=== PATIENT | female | born 1985 | race Hispanic/Latino ===

== ENCOUNTER 2018-10-26 16:31 | Emergency (ER) | payer OTHER ==
[2018-10-26 17:01] VITALS: BP 134/76
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
== END 2018-10-26 18:56 | disposition home or self-care (01) ==
LOC: ED 16:31
DX: S46.912A Strain of unspecified muscle, fascia and tendon at shoulder and upper arm level, left arm, initial encounter (principal); E11.9 Type 2 diabetes mellitus without complications; V49.49XA Driver injured in collision with other motor vehicles in traffic accident, initial encounter; Y93.89 Activity, other specified; Y92.89 Other specified places as the place of occurrence of the external cause; Y99.8 Other external cause status
CPT/HCPCS: 99283

== ENCOUNTER 2020-11-09 11:12 | Outpatient (CLI) | payer BC ==
[2020-11-09 11:53] LABS: Basophils # (Auto) 0.2 K/mm3 (0.0-0.1); Basophils % (Auto) 2.6 % (0.0-1.8); Eosinophils # (Auto) 0.2 K/mm3 (0.0-0.4); Eosinophils % (Auto) 2.1 % (0.0-4.3); Hematocrit 37.6 % (30.3-42.9); Lymphocytes # (Auto) 1.6 K/mm3 (1.2-5.4); Lymphocytes % (Auto) 20.3 % (13.4-35.0); Mean Corpuscular HGB Conc 35 % (30-34); Mean Corpuscular Volume 91 fl (79-97); Monocytes # (Auto) 0.5 K/mm3 (0.0-0.8); Monocytes % (Auto) 6.9 % (0.0-7.3); Platelet Count 250 K/mm3 (140-440); Red Blood Count 4.12 M/mm3 (3.65-5.03)
[2020-11-09 12:08] LABS: Alanine Aminotransferase 15 units/L (7-56); Albumin 3.6 g/dL (3.9-5); Blood Urea Nitrogen 8 mg/dL (7-17); Hemolysis Index 11
[2020-11-09 12:09] LABS: BUN/Creatinine Ratio 16
[2020-11-09 12:58] LABS: Hepatitis C Virus Antibody Non-Reactive (NonReactive)
[2020-11-09 16:23] LABS: Creatinine,Urine 40.5 mg/dL (0.1-20.0)
[2020-11-13 08:28] LABS: HIV-1 Antibody Differentiation SEE SCANNED RESULT; HIV-2 Antibody Differentiation SEE SCANNED RESULT
== END 2020-11-09 11:13 | disposition home or self-care (01) ==
LOC: LAB 11:12
PROVIDERS: ATTEND Advanced Practice Midwife
DX: O09.891 Supervision of other high risk pregnancies, first trimester (principal); Z3A.10 10 weeks gestation of pregnancy; E10.3593 Type 1 diabetes mellitus with proliferative diabetic retinopathy without macular edema, bilateral
CPT/HCPCS: 36415; 80053; 82565; 82570; 82575; 83615; 84156; 85025; 85660; 86592; 86689; 86706; 86762; 86803; 86850; 86900; 86901; 87086

== ENCOUNTER 2021-02-13 19:14 | Outpatient (CLI) | payer BC | END 2021-02-13 20:37 | disposition home or self-care (01) | LOC: TRG 19:14 → APU 19:31 → TRG 20:37 | PROVIDERS: ATTEND Obstetrics & Gynecology | DX: O36.8120 Decreased fetal movements, second trimester, not applicable or unspecified (principal); Z3A.24 24 weeks gestation of pregnancy | CPT/HCPCS: 59025 ==

== ENCOUNTER 2021-04-01 07:51 | Outpatient (CLI) | payer BC ==
--- NOTE | 2021-04-01 09:19 | Ultrasound Report ---
ULTRASOUND BREAST RIGHT LIMITED, 04/01/2021 CLINICAL INFORMATION / INDICATION: UNSPECIFIED LUMP IN RIGHT BREAST. 31 week TECHNIQUE: Targeted ultrasound evaluation was performed of the area of interest. COMPARISON: None. FINDINGS: Dense fibrocystic type tissue is seen in the area of palpable concern but no discrete lesio ns are noted. IMPRESSION: No sonographic evidence of malignancy. Follow up recommendation: Clinical follow-up is suggested. After , if this is a continued co ncern, limited mammography could be performed. BI-RADS Category 2: Benign. A normal or "negative" report should not preclude biopsy or follow-up of a clinically suspicious find ing. Signer Name: Isacc Olivia MD Signed: 04/01/2021 9:14 AM Workstation Name: [id number]
== END 2021-04-01 07:52 | disposition home or self-care (01) ==
LOC: US 07:51
PROVIDERS: ATTEND Obstetrics & Gynecology
DX: N63.11 Unspecified lump in the right breast, upper outer quadrant (principal)

== ENCOUNTER 2021-04-07 12:32 | Outpatient (CLI) | payer BC ==
[2021-04-07 12:37] VITALS: BP 129/59
[2021-04-07] MEDS ORDERED: LACTATED RINGERS 500 ML IV ONE (13:50)
[2021-04-07] MEDS ORDERED: TERBUTALINE 1 MG/1 ML INJ ONE (13:55)
[2021-04-07] MEDS: TERBUTALINE 1 MG/1 ML INJ SUB-Q NR ×3 (14:13→15:36)
[2021-04-07 15:35] LABS: Bacteria,Urine 4+ /HPF (Negative); Bilirubin,Urine NEG (Negative); Blood,Urine NEG (Negative); Color,Urine Straw (Yellow); Protein,Urine <15 mg/dL mg/dL (Negative); Urobilinogen,Urine < 2.0 mg/dL (<2.0)
[2021-04-07] MEDS ORDERED: LIDOCAINE-MPF (1%) 10 MG/1 ML VIAL 5 ML INFILTRATI NR (16:03)
[2021-04-07] MEDS ORDERED: LACTATED RINGERS 1,000 ML IV ONE (16:07)
[2021-04-07] MEDS ORDERED: cefTRIAXone/NS 1 GM/50 ML 1 GM/50 ML BAG IV ONE ×2 (16:30→18:00)
== END 2021-04-07 17:14 | disposition home or self-care (01) ==
LOC: TRG 12:32 → APU 13:56 → TRG 16:10 → APU 16:10 → TRG 17:14
PROVIDERS: ATTEND Obstetrics & Gynecology
DX: O62.9 Abnormality of forces of labor, unspecified (principal); Z3A.31 31 weeks gestation of pregnancy
CPT/HCPCS: 59025; 81001; 87086; 96360; 96361; 96372; J3105; J7120; 96367

== ENCOUNTER 2021-05-06 11:53 | Outpatient (CLI) | payer BC | END 2021-05-06 11:54 | disposition home or self-care (01) | LOC: LAB 11:53 | PROVIDERS: ATTEND Obstetrics & Gynecology | DX: O09.893 Supervision of other high risk pregnancies, third trimester (principal); Z3A.35 35 weeks gestation of pregnancy | CPT/HCPCS: 36415; 86592; 86689 ==

== ENCOUNTER 2021-05-14 10:29 | Inpatient (IN) | payer BC ==
[2021-05-14] MEDS ORDERED: FAMOTIDINE 20 MG/2 ML INJ IV NR (11:00)
[2021-05-14] MEDS ORDERED: ceFAZolin/Water 2 GM/20 ML 2 GM/20 ML SYRINGE IV NR (11:00)
[2021-05-14] MEDS ORDERED: LACTATED RINGERS 1,000 ML IV SCH (11:00)
[2021-05-14] MEDS ORDERED: OXYTOCIN DRIP 30 UNITS/500 ML BAG IV SCH ×2 (11:00→17:34)
[2021-05-14] MEDS ORDERED: METOCLOPRAMIDE 10 MG/2 ML INJ IV NR (11:00)
[2021-05-14] MEDS ORDERED: BICITRA ORAL LIQD 30ML PO NR (11:00)
--- NOTE | 2021-05-14 12:21 | History and Physical Report ---
History of Present Illness Date of examination: 05/14/21 Date of admission: 05/14/21 10:29 Chief complaint: contractions History of present illness: Patient seen in office today today for routine visit c/o contractions that have increased in frequency since yesterday. States while working she had the contractions with increased pelvic pressure but that with rest the contractions spaced on yesterday. Today the contractions have returned. She is sharon on NST q 3 to 5 minutes. Pt has h/o delvery at 37 weeks previously. complicated by IDDM. She also was 3-50/-2 in the office with breech presentation. Pt sent to labor and delivery for repeat c/s. All risk, benefits and alternatives were d/w pt. Provider subscription clerk aware of pt and labor status. EDC Calculations LMP: 06/04/2021 EDC Confirmation: 06/04/2021 Gestational Age: 36 6/7 weeks Past History : 2 Term Births: 1 Premature Births: 0 Living Children: 1 Para: 1 Mult. Births: 0 Prev : 1 Prev. attempt? 0 Aborta: 0 Elect. Ab: 0 Spont. Ab: 0 Ectopics: 0 # 1 Delivery date: 2014 Weeks Gestation: term labor: no Delivery type: Anesthesia type: epidural Delivery location: [facility] Infant Sex: Female weight: 8-6 Name: Deb Comments: failure to descend; severe PPD w/o SI/HI Risk Factors: Smoked Tobacco Use: Former smoker Cigarettes: Yes Smokeless Tobacco Use: Never Counseled to quit/cut down: yes Passive smoke exposure: no Drug use: no HIV high-risk behavior: no Alcohol use: no Exercise: no Seatbelt use: 100 % Dietary Counseling: pn yes Past Medical History: Reviewed history from 06/05/2020 and no changes required: Diabetes Past Surgical History: Reviewed history from 06/05/2020 and no changes required: - 2014 Past Medical History Anesthesia Complications: negative Diabetes: yes Surgery (Non-urogynecology physician): - 2014 Abnormal PAP: negative SARAH Exposure: negative Infertility: negative Uterine Anomaly: negative Uterine Surgery (not C/S): negative Social Hx: Patient is Smoking History: Patient is a former smoker. Infection History Hx of STD: none HIV Risk Eval: no Hepatitis B Risk Eval: low risk Genetic History Congenital Heart Defect: Mom: no Dad: no Veronika Disease: Mom: no Dad: no Thalassemia Mom: no Dad: no Neural Tube Defect Mom: no Dad: no Down's Syndrome Mom: no Dad: no Mathew-Sachs Mom: no Dad: no Sickle Cell Disease/Trait Mom: no Dad: no Hemophilia Mom: no Dad: no Muscular Dystrophy Mom: no Dad: no Cystic Fibrosis Mom: no Dad: no Gwendolyn Chorea Mom: no Dad: no Mental Retardation Mom: no Dad: no Fragile X Mom: no Dad: no Other Genetic/Chromosomal Disorder Mom: no Dad: no Child w/other defect Mom: no Dad: no Enviromental Exposures Xray Exposure: no Medication, drug, or alcohol use since LMP: no Chemical/Other Exposure: no Exposure to Cat Liter: no Hx of Parvovirus (Fifth Disease): no Occupational Exposure to Children: none Active Medications (reviewed today): MACROBID () prn VITAMIN D () FOLIC ACID () HUMALOG SOLUTION CARTRIDGE (INSULIN LISPRO SOCT) PLUS 27-1 MG ORAL TABLET ( VIT-FE FUMARATE-FA) 1 po Current Allergies (reviewed today): No known allergies Laboratory Results Past History Past Medical History: diabetes Past Surgical History: section Family/Genetic History: other (see hpi) Social history: other (see hpi) - Obstetrical History : 2 Medications and Allergies Allergies Allergy/AdvReac Type Severity Reaction Status Date / Time No Known Allergies Allergy Unverified 10/26/18 16:37 Home Medications Medication Instructions Recorded Confirmed Last Taken Type Cyclobenzaprine [Flexeril] 10 mg PO QHS PRN #20 tablet 10/26/18 Unknown Rx Ibuprofen [Motrin] 800 mg PO Q8HR #30 tablet 10/26/18 Unknown Rx Active Meds: Active Medications Citric Acid/Sodium Citrate (Bicitra Oral Liqd 30ml) 30 ml PO ONCE@1100 NR Stop: 05/14/21 20:00 Famotidine (Famotidine 20 Mg/2 Ml Inj) 20 mg IV ONCE@1100 NR Stop: 05/14/21 20:00 Lactated Ringer's (Lactated Ringers) 1,000 mls @ 2,250 mls/hr IV PREOP WARREN Stop: 05/15/21 11:27 Oxytocin/Sodium Chloride (Pitocin/Ns 30 Unit/500ml) 30 units in 500 mls @ 0 mls/hr IV TITR WARREN; Protocol Cefazolin Sodium (Ancef/Sterile Water 2 Gm/20 Ml) 2 gm in 20 mls @ 80 mls/hr IV PREOP NR; Protocol Stop: 05/14/21 20:00 Metoclopramide HCl (Metoclopramide 10 Mg/2 Ml Inj) 10 mg IV ONCE@1100 NR Stop: 05/14/21 20:00 - Vital Signs Vital signs: Vital Signs Pulse Pulse Ox 101 H 97 05/14/21 11:28 05/14/21 11:28 Temp Pulse Resp BP Pulse Ox 84 98 05/14/21 12:13 05/14/21 12:13 - Physical Exam Cardiovascular: Normal S1, Normal S2 Lungs: Positive: Clear to auscultation, Normal air movement Abdomen: Positive: normal appearance, soft. Negative: distention, tenderness, guarding Genitourinary (Female): Positive: normal external genitalia, normal perenium - Obstetrical FHR: category 1 Cervical Dilatation: 3.5 Cervical Effacement Percentage: 50 Uterine Contraction Duration: -2 Uterine Contraction Pattern: Regular Uterine Tone Measurement Phase: Resting Uterine Contraction Intensity: Mild Results All other labs normal. Assessment and Plan - Patient Problems (1) 36 to 37 weeks gestation of Current Visit: Yes Status: Acute (2) labor Current Visit: Yes Status: Acute Qualifiers: labor trimester: third trimester Fetus number: single or unspecified fetus Plan to address problem: -prepare for repeat (3) Diabetes mellitus, insulin dependent (IDDM), controlled Current Visit: Yes Status: Acute Plan to address problem: -cont insulin post -well controlled during (4) Previous delivery affecting Current Visit: Yes Status: Acute Plan to address problem: -currently breech with labor -prepare for (5) Breech presentation Current Visit: Yes Status: Acute Qualifiers: Fetus number: single or unspecified fetus Qualified Code(s): O32.1XX0 - Maternal care for breech presentation, not applicable or unspecified Plan to address problem: -prepare for c/s delivery
[2021-05-14 12:43] LABS: Basophils % (Auto) 0.3 % (0.0-1.8); Eosinophils # (Auto) 0.1 K/mm3 (0.0-0.4); Hemoglobin 13.5 gm/dl (10.1-14.3); Lymphocytes # (Auto) 1.9 K/mm3 (1.2-5.4); Lymphocytes % (Auto) 18.9 % (13.4-35.0); Mean Corpuscular HGB Conc 34 % (30-34); Mean Corpuscular Volume 91 fl (79-97); Monocytes # (Auto) 0.9 K/mm3 (0.0-0.8); Platelet Count 261 K/mm3 (140-440); Red Cell Distribution Width 13.2 % (13.2-15.2)
[2021-05-14] MEDS ORDERED: dexAMETHasone 20 MG/5 ML VIAL ONE (13:13)
[2021-05-14] MEDS ORDERED: ONDANSETRON 4 MG/2 ML INJ ONE (13:13)
[2021-05-14] MEDS ORDERED: KETOROLAC 30 MG/1 ML INJ ONE (13:13)
[2021-05-14] MEDS ORDERED: BUPIVACAINE/PF (0.5%) 5 MG/1 ML 30 ML VIAL INFILTRATI ONE (13:13)
[2021-05-14] MEDS ORDERED: CARBOPROST TROMETHAMINE 250 MCG/1 ML INJ IM ONE (13:23)
[2021-05-14] MEDS ORDERED: miSOPROStol 200 MCG TAB ONE (13:23)
[2021-05-14] MEDS ORDERED: SODIUM CHLORIDE 0.9% IRR 1,500 ML BOTTLE IR ONE (14:10)
[2021-05-14] MEDS ORDERED: WATER FOR IRRIG STERILE 1,500 ML BOTTLE IR ONE (14:10)
--- NOTE | 2021-05-14 14:15 | Anesthesia Day of Surgery ---
Anesthesia Day of Surgery - Day of Surgery Patient Examined: Yes Patient H&P Reviewed: Yes Patient is NPO: No (given reglan, pepcid) Beta Blockers: No Cardiac Clearance: No Pulmonary Clearance: No Aniket's Test: N/A (ate light breakfast @ 0700)
--- NOTE | 2021-05-14 14:16 | Anesthesia Consultation ---
Anesthesia Consult and Med Hx Date of service: 05/14/21 - Airway Anesthetic Teeth Evaluation: Good, Chipped ROM Head & Neck: Adequate Mental/Hyoid Distance: Adequate Mallampati Class: Class II Intubation Access Assessment: Probably Good - Pulmonary Exam CTA: Yes - Cardiac Exam Cardiac Exam: RRR - Pre-Operative Health Status ASA Pre-Surgery Classification: ASA2, Emergency Proposed Anesthetic Plan: Spinal Nerve Block: TAP - Pulmonary Hx Smoking: No Hx Asthma: No COPD: No Hx Pneumonia: No Hx Sleep Apnea: No - Cardiovascular System Hx Hypertension: No Hx Heart Attack/AMI: No Hx Angina: No - Gastrointestinal Hx Gastroesophageal Reflux Disease: No - Endocrine Hx Renal Disease: No Hx End Stage Renal Disease: No Hx Liver Disease: No Hx Insulin Dependent Diabetes: Yes (Type 1, well controlled on pump) Hx Non-Insulin Dependent Diabetes: No - Other Systems Hx Alcohol Use: No - Additional Comments Anesthesia Medical History Comments: previous c/s
--- NOTE | 2021-05-14 14:17 | Progress Note ---
Spinal Anesthesia Block - Spinal Anesthesia Block Start Time: 13:50 Stop Time: 13:59 Performed by:: JUAN RAMON GARCÍA (Melanie MUHAMMAD) Procedure: Spinal anesthesia block is being performed for [C/S]. H&P, labs have been reviewed. Patient's questions and concerns have been answered. Informed consent has been performed. Timeout has was performed. Patient in sitting position on side of bed. Sterile prep and drape was performed. 3 mL 1% lidoc tonya skin wheal at L [3]-L [4]. Needle introducer advanced. 25-gauge spinal needle advanced, [+] CSF [-] blood. [Marcaine 10mg and Precedex 5mcg] Spinal dose was given. All needles removed. Patient tolerated procedure well.
[2021-05-14] MEDS ORDERED: PHENYLEPHRINE/NS 1,000 MCG/10 ML SYRINGE (OR USE) IV ONE (14:19)
[2021-05-14] MEDS ORDERED: NALOXONE 0.4 MG/1 ML INJ IV PRN ×2 (14:30→17:34)
[2021-05-14] MEDS ORDERED: diphenhydrAMINE 50 MG/ML VIAL IV PRN (14:30)
[2021-05-14] MEDS ORDERED: ONDANSETRON 4 MG/2 ML INJ IV PRN ×2 (15:00→17:34)
[2021-05-14] MEDS ORDERED: HYDROmorphone 1 MG/1 ML INJ IV PRN (15:00)
[2021-05-14] MEDS ORDERED: NalbUPHINE 10 MG/1 ML INJ IV PRN (15:00)
[2021-05-14] MEDS ORDERED: PROMETHAZINE 25 MG RECT SUPP PR PRN ×2 (15:00→17:34)
[2021-05-14] MEDS ORDERED: PROMETHAZINE 25 MG TAB PO PRN (15:00)
--- NOTE | 2021-05-14 15:10 | Post Operative Note ---
Pre-op diagnosis: IUP@ 37wgam breech, early labor, IDDM Post-op diagnosis: same Procedure: LTCS Anesthesia: spinal Surgeon: BROOKE ABRAHAM Pathology: list (placenta) Specimen disposition: to lab Condition: stable Disposition: PACU
[2021-05-14] MEDS ORDERED: SENNOSIDES 8.6 MG TAB PO PRN (17:34)
[2021-05-14] MEDS ORDERED: MAGNESIUM HYDROXIDE (MOM) ORAL LIQD UDC PO PRN (17:34)
[2021-05-14] MEDS ORDERED: DEXTROSE 50% IN WATER (25GM) 50 ML SYRINGE IV PRN (17:34)
[2021-05-14] MEDS ORDERED: LANOLIN/ZINC/DIMETHICONE (LANSINOH) 7 GM TP PRN (17:34)
[2021-05-14] MEDS ORDERED: WITCH HAZEL/ GLYCERIN PAD TP PRN (17:34)
[2021-05-14] MEDS ORDERED: MORPHINE 4 MG/1 ML INJ IV PRN (17:34)
[2021-05-14] MEDS ORDERED: SIMETHICONE 80 MG CHEW TAB PO PRN (17:34)
[2021-05-14] MEDS: MORPHINE 2 MG/1 ML INJ IV PRN (17:47)
[2021-05-14] MEDS: LACTATED RINGERS 1,000 ML IV SCH (17:49)
[2021-05-14] MEDS ORDERED: ACETAMINOPHEN 500 MG TAB PO PRN (19:00)
[2021-05-14] MEDS: ceFAZolin/NS 1 GM/50 ML 1 GM/50 ML BAG IV SCH (22:56)
[2021-05-14] MEDS: INSULIN REGULAR, HUMAN 100 UNITS/1 ML SUB-Q SCH (23:30)
[2021-05-15] MEDS: KETOROLAC 30 MG/1 ML INJ IV SCH ×3 (02:00→17:25)
[2021-05-15] MEDS: LACTATED RINGERS 1,000 ML IV SCH ×2 (03:43→13:26)
[2021-05-15 05:03] LABS: Hematocrit 34.7 % (30.3-42.9); Hemoglobin 11.4 gm/dl (10.1-14.3)
[2021-05-15] MEDS: INSULIN REGULAR, HUMAN 100 UNITS/1 ML SUB-Q SCH ×3 (05:14→18:00)
[2021-05-15] MEDS: MORPHINE 2 MG/1 ML INJ IV PRN ×4 (05:15→22:06)
[2021-05-15] MEDS ORDERED: TETANUS,DIPH,PERTUSS(ACELL) VACCINE 0.5 ML SYRINGE IM ONE (06:00)
[2021-05-15] MEDS: ceFAZolin/NS 1 GM/50 ML 1 GM/50 ML BAG IV SCH (06:31)
--- NOTE | 2021-05-15 07:56 | Operative Report ---
Operative Report Operative Report: Date of operation: 05/14/2021 Pre-operative diagnosis: 1. Intrauterine at 37 weeks gestational age 2. Previous delivery 3. Desires repeat delivery 4. BMI 32.9 kg/m2 5. Early labor 6. Polyhydramnios 7. Insulin-dependent diabetes mellitus 8. Breech presentation Post-operative diagnosis: 1. Intrauterine at 37 weeks gestational age 2. Previous delivery 3. Desires repeat delivery 4. BMI 32.9 kg/m2 5. Early labor 6. Polyhydramnios 7. Insulin-dependent diabetes mellitus 8. Josephine breech presentation Procedure name(s): Low transverse uterine incision Surgeon: Buffy Soliz MD Grain Elevator Man: Jennifer Hughes Anesthesia: Spinal EBL: Not available at this dictation mL Urine output: 400 mL of clear urine out at the end of the procedure Fluids: 1125 mL Findings: Liveborn male infant weight 8 Lbs. 7 oz. Apgars of 8 and 9 at one and 5 minutes Indications: This is a 35-year-old female 2 para 2 with IDDM and polyhydramnios who presented to the office for routine OB visit. NST revealed contractions. Cervical exam revealed patient to be 3 to 4 cm dilated. She was sent the hospital for admission for delivery. Procedure: Patient was taking to the operating room. Spinal anesthesia was placed. Patient was then prepped and draped in the usual sterile fashion Timeout was performed. Once an appropriate level of anesthesia was noted, a Pfannenstiel incision was made and extended the fascia which was incised and extended lateral direction. The overlying fascia was sharply dissected away from the underlying rectus muscles in the superior inferior direction. The midline was entered bluntly. Bladder blade was placed. Vesicouterine fold was incised with blunt dissection bladder flap was created. A transverse incision was made in the thin lower uterine segment and extended superolateral direction with finger fractionation. Clear copious fluid was noted. Infant was delivered from the josephine breech position, nuchal cord x2 that was released over the head after delivery, with spontaneous cry and excellent tone. Mouth and nose bulb suctioned. Cord was doubly clamped and cut infant was given to the resuscitation team present. Placenta was delivered. The uterus was exte riorized and cleaned of any further placental tissue and products of conception. Uterine incision was approximated using 0 Vicryl in a running interlocking stitch followed by further suture of 0 Vicryl in imbricating fashion. When hemostasis was noted the uterus was allowed back in the pelvic cavity. Pelvis was irrigated with warm normal saline. Once hemostasis was noted the rectus muscles were approximated using 0 Vicryl interrupted simple stitches 3. Once hemostasis was noted the fascia was approximated using 0 Vicryl simple running stitch. The incision was irrigated with warm saline, once hemostasis as noted, the subcuticular adipose tissue was reapproximated using 3-0 Vicryl in a simple running fashion. Skin was approximated using 4-0 Vicryl on a Kareem needle in a subcuticular manner. Counts were correct x3. Patient tolerated the procedure well, she was taken to recovery room in stable condition.
--- NOTE | 2021-05-15 11:10 | Progress Note ---
Assessment and Plan - Patient Problems (1) 36 to 37 weeks gestation of Current Visit: Yes Status: Acute (2) labor Current Visit: Yes Status: Acute Qualifiers: labor trimester: third trimester Fetus number: single or unspecified fetus (3) Diabetes mellitus, insulin dependent (IDDM), controlled Current Visit: Yes Status: Acute (4) Previous delivery affecting Current Visit: Yes Status: Acute (5) Breech presentation Current Visit: Yes Status: Acute Qualifiers: Fetus number: single or unspecified fetus Qualified Code(s): O32.1XX0 - Maternal care for breech presentation, not applicable or unspecified (6) Status post repeat low transverse section Current Visit: Yes Status: Acute Plan to address problem: -routine pp/ post op care -plan for d/c in am if remains AFVSS Subjective - Subjective Date of service: 05/15/21 Interval history: Patient seen in office today today for routine visit c/o contractions that have increased in frequency since yesterday. States while working she had the contractions with increased pelvic pressure but that with rest the contractions spaced on yesterday. Today the contractions have returned. She is sharon on NST q 3 to 5 minutes. Pt has h/o delvery at 37 weeks previously. complicated by IDDM. She also was 3-4/50/-2 in the office with breech presentation. Pt sent to labor and delivery for repeat c/s. All risk, benefits and alternatives were d/w pt. Provider environmental protection geologist aware of pt and labor status. EDC Calculations LMP: 06/04/2021 EDC Confirmation: 06/04/2021 Gestational Age: 36 6/7 weeks Past History : 2 Term Births: 1 Premature Births: 0 Living Children: 1 Para: 1 Mult. Births: 0 Prev : 1 Prev. attempt? 0 Aborta: 0 Elect. Ab: 0 Spont. Ab: 0 Ectopics: 0 # 1 Delivery date: 2014 Gestation: term labor: no Delivery type: Anesthesia type: epidural Delivery location: [facility] Sex: Female weight: 8-6 Name: Deb Comments: failure to descend; severe PPD w/o SI/HI Risk Factors: Smoked Tobacco Use: Former smoker Cigarettes: Yes Smokeless Tobacco Use: Never Counseled to quit/cut down: yes Passive smoke exposure: no Drug use: no HIV high-risk behavior: no Alcohol use: no Exercise: no Seatbelt use: 100 % Dietary Counseling: pn yes Past Medical History: Reviewed history from 06/05/2020 and no changes required: Diabetes Past Surgical History: Reviewed history from 06/05/2020 and no changes required: - 2014 Past Medical History Anesthesia Complications: negative Diabetes: yes Surgery (Non-box spinner): - 2014 Abnormal PAP: negative SARAH Exposure: negative Infertility: negative Uterine Anomaly: negative Uterine Surgery (not C/S): negative Social Hx: Patient is Smoking History: Patient is a former smoker. Infection History Hx of STD: none HIV Risk Eval: no Hepatitis B Risk Eval: low risk Genetic History Congenital Heart Defect: Mom: no Dad: no Veronika Disease: Mom: no Dad: no Thalassemia Mom: no Dad: no Neural Tube Defect Mom: no Dad: no Down's Syndrome Mom: no Dad: no Mathew-Sachs Mom: no Dad: no Sickle Cell Disease/Trait Mom: no Dad: no Hemophilia Mom: no Dad: no Muscular Dystrophy Mom: no Dad: no Cystic Fibrosis Mom: no Dad: no Cammal Chorea Mom: no Dad: no Mental Retardation Mom: no Dad: no Fragile X Mom: no Dad: no Other Genetic/Chromosomal Disorder Mom: no Dad: no Child w/other defect Mom: no Dad: no Enviromental Exposures Xray Exposure: no Medication, drug, or alcohol use since LMP: no Chemical/Other Exposure: no Exposure to Cat Liter: no Hx of Parvovirus (Fifth Disease): no Occupational Exposure to Children: none Active Medications (reviewed today): MACROBID () prn VITAMIN D () FOLIC ACID () HUMALOG SOLUTION CARTRIDGE (INSULIN LISPRO SOCT) PLUS 27-1 MG ORAL TABLET ( VIT-FE FUMARATE-FA) 1 po Current Allergies (reviewed today): No known allergies Laboratory Results Patient reports: appetite normal, voiding normally, pain well controlled, no dizzy ambulation : doing well, nursing well Objective - Vital Signs Latest vital signs: Vital Signs Temp Pulse Resp BP BP Pulse Ox Pulse Ox 05/15/21 11:07 16 05/15/21 08:45 16 05/15/21 08:20 98.2 F 19 111/44 05/15/21 08:07 100 05/15/21 05:15 18 05/15/21 05:02 97.8 F 63 18 115/55 96 05/15/21 02:00 18 05/15/21 01:51 98.3 F 74 18 110/48 98 05/14/21 22:57 18 05/14/21 20:55 98.3 F 63 18 119/53 97 05/14/21 20:00 98 05/14/21 17:00 97.9 F 62 18 114/46 98 98 05/14/21 13:37 116 H 83 L 05/14/21 13:34 76 97 05/14/21 13:29 89 98 05/14/21 13:24 79 96 05/14/21 13:23 57 L 05/14/21 13:15 96 05/14/21 13:13 86 96 05/14/21 13:08 98.5 F 88 18 131/71 131/71 96 05/14/21 13:03 97 H 96 05/14/21 12:58 98 H 97 05/14/21 12:53 95 H 97 05/14/21 12:48 84 97 05/14/21 12:43 87 97 05/14/21 12:38 95 H 97 05/14/21 12:33 98 H 97 05/14/21 12:28 91 H 97 05/14/21 12:23 85 97 05/14/21 12:18 93 H 97 05/14/21 12:13 84 98 05/14/21 12:08 99 H 97 05/14/21 12:03 84 96 05/14/21 11:58 100 H 96 05/14/21 11:53 99 H 97 05/14/21 11:51 98 H 94 05/14/21 11:48 97 H 97 05/14/21 11:43 90 96 05/14/21 11:38 107 H 96 05/14/21 11:33 84 97 05/14/21 11:28 101 H 97 Intake and Output 05/14/21 05/15/21 05/15/21 22:59 06:59 14:59 Intake Total 240 1530 360 Output Total 675 1100 500 Balance -435 430 -140 Intake: IV 1050 ANCEF/NS 1 GM/50 ML 1 gm 50 In 50 ml @ 100 mls/hr IV Q8H [facility] Rx#:[id number] Lactated Ringers 1,000 ml 1000 @ 125 mls/hr IV DIRECT [facility] Rx#:[id number] Oral 360 Intake, Free Water 240 480 Output: Urine 675 1100 500 Indwelling Catheter 500 1100 Void 500 Other: Total, Intake Amount 360 Total, Output Amount 500 200 500 - Exam Breasts: Present: deferred Cardiovascular: Present: Regular rate, Normal S1, Normal S2 Lungs: Present: Clear to auscultation, Normal air movement Abdomen: Present: normal appearance, soft, normal bowel sounds. Absent: distention, tenderness, guarding Uterus: Present: normal, firm, fundal height below umbilicus. Absent: bogginess, tenderness Extremities: Present: normal. Absent: tenderness, edema Deep Tendon Reflex Grade: Normal +2 Incision: Present: normal, dry, intact (open to air) - Labs Labs: Abnormal lab results 05/14/21 05/15/21 Range/Units 11:15 10:41 Kay % (Auto) 9.0 H (0.0-7.3) % Kay # (Auto) 0.9 H (0.0-0.8) K/mm3 Seg Neutrophils % 70.8 H (40.0-70.0) % POC Glucose 117 H (70-105) mg/dL
[2021-05-15] MEDS: SERTRALINE 50 MG TAB PO SCH (13:26)
--- NOTE | 2021-05-15 13:26 | Post Anesthesia Evaluation ---
- Post Anesthesia Evaluation Patient Participated: Yes Airway Patent: Yes Stable Respiratory Function: Yes Nausea/Vomiting: No Temp > 96.8F: Yes Pain Manageable: Yes Adequeate Hydration: Yes Anesthesia Complications: No Block Receding Appropriately: Yes Patient on Ventilator: No
[2021-05-15] MEDS ORDERED: oxyCODONE /ACETAMINOPHEN 5-325MG TAB PO PRN (15:05)
[2021-05-15] MEDS ORDERED: IBUPROFEN 800 MG TAB PO PRN (15:05)
[2021-05-16] MEDS ORDERED: KETOROLAC 30 MG/1 ML INJ IV SCH (02:30)
[2021-05-16] MEDS: INSULIN REGULAR, HUMAN 100 UNITS/1 ML SUB-Q SCH ×3 (07:58→12:57)
[2021-05-16] MEDS ORDERED: TETANUS,DIPH,PERTUSS(ACELL) VACCINE 0.5 ML SYRINGE IM ONE (08:00)
--- NOTE | 2021-05-16 09:26 | Discharge Summary ---
Providers - Providers Date of Admission: 05/14/21 10:29 Date of discharge: 05/16/21 Attending physician: BROOKE ABRAHAM 05/14/21 17:34 Consult to Human Resource Analyst [CONS] Routine Reason For Exam: Primary care physician: BROOKE ABRAHAM Hospitalization Reason for admission: labor Delivery: Procedure: repeat low transverse Procedure details: SEE OP NOTE Incision: normal, dry, intact (OPEN TO AIR. NO S/SX OF INFECTION) Other procedures: none complications: none Discharge diagnosis: other (S/P REPEAT LTCS), delivery baby: male Hospital course: PT ADMTTED FOR [facility] AND HAD REPEAT C/S THAT WAS NOT COMPLICATED. POST OP COURSE HAS NOT BEEN COMPLICATED. PT DESIRES D/C HOME TODAY. WILL D/C HOME TODAY IF CLEARED FOR D/C. Condition at discharge: Good Disposition: 01 HOME / SELF CARE / HOMELESS - Discharge Diagnoses (1) 36 to 37 weeks gestation of Status: Acute (2) labor Status: Acute Qualifiers: labor trimester: third trimester Fetus number: single or unspecified fetus (3) Diabetes mellitus, insulin dependent (IDDM), controlled Status: Acute (4) Previous delivery affecting Status: Acute (5) Breech presentation Status: Acute Qualifiers: Fetus number: single or unspecified fetus Qualified Code(s): O32.1XX0 - Maternal care for breech presentation, not applicable or unspecified (6) Status post repeat low transverse section Status: Acute Plan - Discharge Medications Prescriptions: Docusate Sodium [Colace] 100 mg PO BID PRN #30 capsule PRN Reason: Constipation Lidocain2.5%/Prilocai2.5% [Emla] 5 gm TP ONCE #1 tube Ibuprofen [Motrin 800 MG tab] 800 mg PO TID PRN #30 tablet PRN Reason: Pain oxyCODONE /ACETAMINOPHEN [Percocet 5/325 mg] 1 - 2 tab PO Q6HR PRN #14 tablet PRN Reason: Pain - Provider Discharge Summary Activity: routine, no sex for 6 weeks, no heavy lifting 4 weeks, no strenuous exercise Diet: routine Instructions: routine Additional instructions: [] Smoking cessation referral if applicable(refer to patient education folder for contact #) [] Refer to [facility] Booklet Call your doctor immediately for: * Fever > 100.5 * Heavy vaginal bleeding ( >1 pad per hour) * Severe persistent headache * Shortness of breath * Reddened, hot, painful area to leg or breast * Drainage or odor from incision. * Keep incision clean and dry at all times and follow doctor's instructions regarding bathing/showering - Follow up plan Follow up: BROOKE ABRAHAM MD [Primary Care Provider] - 7 Days
[2021-05-16] MEDS: SERTRALINE 50 MG TAB PO SCH (11:25)
[2021-05-16 13:07] VITALS: BP 108/48
== END 2021-05-16 13:56 | disposition home or self-care (01) | DRG 786 ==
LOC: APU 10:29 → OB 17:07
PROVIDERS: ADMIT Obstetrics & Gynecology; ATTEND Obstetrics & Gynecology
PROC: 10D00Z1 Extraction of Products of Conception, Low, Open Approach (ICD-10-PCS; principal; 2021-05-14)
PROC: 3E0234Z Introduction of Serum, Toxoid and Vaccine into Muscle, Percutaneous Approach (ICD-10-PCS; 2021-05-15)
DX: O32.1XX0 Maternal care for breech presentation, not applicable or unspecified (principal); O24.12 Pre-existing type 2 diabetes mellitus, in childbirth; Z37.0 Single live birth; O60.14X0 Preterm labor third trimester with preterm delivery third trimester, not applicable or unspecified; Z3A.36 36 weeks gestation of pregnancy; Z20.822 Contact with and (suspected) exposure to COVID-19; Z23 Encounter for immunization; O34.211 Maternal care for low transverse scar from previous cesarean delivery; O40.3XX0 Polyhydramnios, third trimester, not applicable or unspecified
CPT/HCPCS: 36415; 82962; 85014; 85018; 85025; 86592; 86850; 86900; 86901; 88307; 90715; 99211; G0378; J3490; J7121; G0463; J0690; J1100; J1885; J2270; J2370; J2405; J2765; J7120; U0003